=== PATIENT | female | born 1995 | race Caucasian/White ===

== ENCOUNTER 2016-05-08 17:29 | Emergency (ER) | payer BC, MEDICAID ==
[2016-05-08] MEDS ORDERED: CEFTRIAXONE 1 GM VIAL ONE (20:41)
[2016-05-08] MEDS ORDERED: ONDANSETRON 4 MG VIAL ONE (20:41)
[2016-05-08] MEDS ORDERED: SODIUM CHLORIDE 0.9% 50 ML IV ONE (20:42)
[2016-05-08] MEDS ORDERED: SODIUM CHLORIDE 0.9% 1,000 ML ONE (20:42)
== END 2016-05-08 22:01 | disposition home or self-care (01) ==
LOC: ER 17:29
DX: O23.11 Infections of bladder in pregnancy, first trimester (principal); N30.01 Acute cystitis with hematuria; Z3A.11 11 weeks gestation of pregnancy
CPT/HCPCS: 36415; 80053; 81001; 83690; 84702; 85025; 87088; 96361; 96365; 96375